=== PATIENT | male | born 1975 | race Caucasian/White ===

== ENCOUNTER 2023-06-17 12:22 | Outpatient (CLI) | payer BC | END 2023-06-17 12:23 | disposition home or self-care (01) | LOC: CSHWCC 12:22 | PROVIDERS: ATTEND Nurse Practitioner Family | DX: T81.32XD Disruption of internal operation (surgical) wound, not elsewhere classified, subsequent encounter (principal); S82.113 Displaced fracture of unspecified tibial spine; M86.361 Chronic multifocal osteomyelitis, right tibia and fibula; Z72.0 Tobacco use | CPT/HCPCS: 97597; 99213; G0463 ==

== ENCOUNTER 2023-06-20 13:38 | Outpatient (CLI) | payer BC | END 2023-06-20 13:39 | disposition home or self-care (01) | LOC: CSHWCC 13:38 | PROVIDERS: ATTEND Nurse Practitioner Family | DX: T81.32XD Disruption of internal operation (surgical) wound, not elsewhere classified, subsequent encounter (principal); S82.113 Displaced fracture of unspecified tibial spine; M86.361 Chronic multifocal osteomyelitis, right tibia and fibula; Z72.0 Tobacco use | CPT/HCPCS: 97605 ==

== ENCOUNTER 2023-06-24 12:58 | Outpatient (CLI) | payer BC | END 2023-06-24 12:59 | disposition home or self-care (01) | LOC: CSHWCC 12:58 | PROVIDERS: ATTEND Nurse Practitioner Family | DX: T81.32XD Disruption of internal operation (surgical) wound, not elsewhere classified, subsequent encounter (principal); S82.113 Displaced fracture of unspecified tibial spine; M86.361 Chronic multifocal osteomyelitis, right tibia and fibula; Z72.0 Tobacco use | CPT/HCPCS: 11044 ==

== ENCOUNTER 2023-06-28 13:45 | Outpatient (CLI) | payer BC | END 2023-06-28 13:46 | disposition home or self-care (01) | LOC: CSHWCC 13:45 | PROVIDERS: ATTEND Nurse Practitioner Family | DX: T81.32XD Disruption of internal operation (surgical) wound, not elsewhere classified, subsequent encounter (principal); S82.113 Displaced fracture of unspecified tibial spine; M86.361 Chronic multifocal osteomyelitis, right tibia and fibula; Z72.0 Tobacco use | CPT/HCPCS: 11042 ==

== ENCOUNTER 2023-07-01 09:02 | Outpatient (CLI) | payer BC | END 2023-07-01 09:03 | disposition home or self-care (01) | LOC: CSHWCC 09:02 | PROVIDERS: ATTEND Nurse Practitioner Family | DX: T81.32XD Disruption of internal operation (surgical) wound, not elsewhere classified, subsequent encounter (principal); S82.113 Displaced fracture of unspecified tibial spine; M86.361 Chronic multifocal osteomyelitis, right tibia and fibula; Z72.0 Tobacco use | CPT/HCPCS: 97605 ==

== ENCOUNTER 2023-07-05 15:28 | Outpatient (CLI) | payer BC | END 2023-07-05 15:29 | disposition home or self-care (01) | LOC: CSHWCC 15:28 | PROVIDERS: ATTEND Nurse Practitioner Family | DX: T81.32XD Disruption of internal operation (surgical) wound, not elsewhere classified, subsequent encounter (principal); S82.113 Displaced fracture of unspecified tibial spine; M86.361 Chronic multifocal osteomyelitis, right tibia and fibula; Z72.0 Tobacco use | CPT/HCPCS: 11044; 97605 ==

== ENCOUNTER 2023-07-12 16:09 | Outpatient (CLI) | payer BC | END 2023-07-12 16:10 | disposition home or self-care (01) | LOC: CSHWCC 16:09 | PROVIDERS: ATTEND Nurse Practitioner Family | DX: T81.32XD Disruption of internal operation (surgical) wound, not elsewhere classified, subsequent encounter (principal); S82.113 Displaced fracture of unspecified tibial spine; M86.361 Chronic multifocal osteomyelitis, right tibia and fibula; Z72.0 Tobacco use | CPT/HCPCS: 11042; 97605 ==

== ENCOUNTER 2023-07-26 | Outpatient (CLI) | payer BC | END 2023-07-26 13:26 | disposition home or self-care (01) | DX: T81.32XD Disruption of internal operation (surgical) wound, not elsewhere classified, subsequent encounter (principal); S82.113 Displaced fracture of unspecified tibial spine; M86.361 Chronic multifocal osteomyelitis, right tibia and fibula; Z72.0 Tobacco use ==

== ENCOUNTER 2023-08-09 11:11 | Outpatient (CLI) | payer BC | END 2023-08-09 11:12 | disposition home or self-care (01) | LOC: CSHWCC 11:11 | PROVIDERS: ATTEND Nurse Practitioner Family | DX: T81.32XD Disruption of internal operation (surgical) wound, not elsewhere classified, subsequent encounter (principal); S82.113 Displaced fracture of unspecified tibial spine; M86.361 Chronic multifocal osteomyelitis, right tibia and fibula; Z72.0 Tobacco use | CPT/HCPCS: 11044; 97605 ==